=== PATIENT | female | born 1935 | race Caucasian/White ===

== ENCOUNTER → 2016-11-17 | Outpatient (CLI) | payer MEDICARE | LOC: VAS 17:39 | DX: R60.1 Generalized edema (principal); I34.0 Nonrheumatic mitral (valve) insufficiency; I35.1 Nonrheumatic aortic (valve) insufficiency ==

== ENCOUNTER → 2016-12-29 | Outpatient (CLI) | payer MEDICARE | LOC: CARDREHAB 12-17 08:20 → PT 12-17 12:02 → CARDREHAB 08:30 | DX: Z87.891 Personal history of nicotine dependence (principal); I10 Essential (primary) hypertension; Z82.49 Family history of ischemic heart disease and other diseases of the circulatory system; R06.09 Other forms of dyspnea; J44.9 Chronic obstructive pulmonary disease, unspecified; E78.5 Hyperlipidemia, unspecified | CPT/HCPCS: A9500 ==

== ENCOUNTER → 2017-05-24 | Outpatient (CLI) | payer MEDICARE | LOC: RAD 09:57 | DX: Z86.73 Personal history of transient ischemic attack (TIA), and cerebral infarction without residual deficits (principal) ==

== ENCOUNTER → 2017-07-14 | Outpatient (CLI) | payer MEDICARE | LOC: MAMMO 08:56 → RAD 09:15 | DX: Z12.31 Encounter for screening mammogram for malignant neoplasm of breast (principal) ==

== ENCOUNTER → 2017-09-26 | Outpatient (CLI) | payer MEDICARE | LOC: RAD 11:00 | DX: K44.9 Diaphragmatic hernia without obstruction or gangrene (principal); R91.8 Other nonspecific abnormal finding of lung field; Z85.528 Personal history of other malignant neoplasm of kidney ==

== ENCOUNTER → 2018-03-06 | Outpatient (CLI) | payer MEDICARE | LOC: VAS 15:32 → RAD 16:00 | DX: I27.0 Primary pulmonary hypertension (principal); I34.0 Nonrheumatic mitral (valve) insufficiency ==

== ENCOUNTER → 2020-01-21 | Outpatient (CLI) | payer MEDICARE | LOC: RAD 10:30 | DX: C64.9 Malignant neoplasm of unspecified kidney, except renal pelvis (principal); K80.20 Calculus of gallbladder without cholecystitis without obstruction; N28.1 Cyst of kidney, acquired; Z90.5 Acquired absence of kidney ==